=== PATIENT | male | born 1960 | race Caucasian/White ===

== ENCOUNTER → 2020-11-10 12:30 | Outpatient (CLI) | payer OTHER, SELFPAY ==
--- NOTE | ~2020-11-10 | CT_ITS ---
EXAMINATION: CT lung screening DATE: 11/10/2020 12:56 INDICATION: Personal history of tobacco dependence, current smoker with 30 pack year history. TECHNIQUE: Computed tomography (CT) of the chest was performed without intravenous contrast. The dose -length product (DLP) was 112.66 mGy-cm. 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 COMPARISON: 07/05/2019 FINDINGS: There is mild emphysema. Scarring is noted in the lung apices. No suspicious pulmonary nodu les are identified. There is no pleural effusion or pneumothorax. Calcified pulmonary nodules and tenzin cified right hilar lymph nodes are consistent with old granulomatous disease. No pathologically enlar ged thoracic lymph nodes are identified. The heart size is normal. Changes of anterior fusion are not ed in the lower cervical spine. There is mild thoracic spondylosis. IMPRESSION: 1. Lung-RADS category 1: Negative. Continue annual screening with noncontrast low-dose chest CT in 12 months. Reviewed, dictated and finalized at location A. IMPRESSION: 1. Lung-RADS category 1: Negative. Continue annual screening with noncontrast l ow-dose chest CT in 12 months.
== END ==
PROVIDERS: PCP Internal Medicine; Visit Provider Internal Medicine
DX: Z12.2 Encounter for screening for malignant neoplasm of respiratory organs (principal); Z87.891 Personal history of nicotine dependence
CPT/HCPCS: 71271

== ENCOUNTER 2025-03-13 03:01 | Day surgery (SDC) | payer OTHER, SELFPAY ==
--- OUTSIDE RECORDS SUMMARY | 2019-10-25 06:03 | XMS_ITS | Continuity of Care Document ---
Author Organization [facility] Address [address] [place] [address] Phone Care Team Providers Care Drafter Topographical Name Role Phone Crescencio Burden MD Unavailable Unavailable Advance Directives Directive Yes / No Effective Date File Name No Information Encounters Encounter Description Practice Location Reason(s) For Visit Diagnoses Date Provider Providers Copied on Encounter [facility] , [address], [place], [address], [place] tel:[phone] [facility] No Information 3 0 Bertram Prather. [address] [facility] [address], [place], [place], [id number] . tel:[phone] Family History Family Member Type Diagnosis Age At Onset No Information Payers Payer name Insurance type Covered republican ID Authoriza tion(s) No Information Social History Type Description Quantity Date Captured Comments Sex Male Smoking Status No Information Chief Complaint And Reason For Visit No Information Reason For Referral Reason For Referral No Information History Of Present Illness Encounter Date Complaint History Of Prese nt Illness No Information Functional Status Date Functional Assessmen t No Information Instructions Date Instruction Additional Infor mation No Information Assessments Type Assessment Date No Information Patient Care Teams Name Effective Dates (start - stop) Status Members No Information
[2025-03-12 09:08] VITALS: BMI 22.9
--- NOTE | 2025-03-12 09:15 | PC.NURSE ---
Report to the Outpatient Waiting Room, entrance under the green pavilion located off [facility], at time _0600_ on date _[phone]_. Planned Procedure Time: _0730_.? Time changes happen often and if your time is changed the preop area will call you the afternoon before. - You and your visitor will be asked to self-screen and do not enter if you have any COVID symptoms. Please call surgeon if you need to reschedule. - A mask is optional within the hospital at this time. Patients may have clear liquids (water, carbonated beverages, clear teas, apple juice) until 3 hours prior to surgery with a maximum of 20 ounces. - No food from midnight until time of surgery and no smoking, or chewing tobacco (or any form of nicotine). No chewing gum, candy or mints. Take only the following medications with a SIP of water on the morning of surgery: ___None____ DO NOT STOP ANY OF YOUR OTHER PRESCRIPTION MEDICATIONS PRIOR TO SURGERY EXCEPT THE FOLLOWING Hold all vitamins and supplements for 3 days per anesthesiologist. Medications to discontinue per physician Date to take last dose Please no make-up, nail french, hairspray, perfume, deodorant, or body powder the day of surgery.? No jewelry (including any body piercings) or valuables the day of surgery, leave them at home.? Please take a shower or bath the night before, or the morning of, surgery with an antibacterial soap.? Wear comfortable, loose fitting clothing.? - Jewelry must be removed prior to entering the operating room.? Rings and piercings that are not removed may be cut off. - The hospital will not accept responsibility for valuables.? - Please leave all valuables, including medications, at home the day of surgery. If you are going home after surgery, a licensed crude oil driver must drive you home.? - NO public transportation without another adult if you receive anesthesia. - We recommend that an adult stay with you for 24 hours following discharge. - We also recommend that you do not drive, make important decision, drink alcoholic beverages, or take any drugs that were not prescribed by your health care provider for at least 24 hours after your discharge time. Follow any additional instructions given to you from your surgeon. Telephone instructions given to __Sage__and asked if any additional questions and then verbalized understanding. Patient advised to call surgeon office or pre surgery nurse liaison [phone] if any additional questions.
--- OUTSIDE RECORDS SUMMARY | 2025-03-13 03:05 | XMS_ITS ---
Author Organization [facility] Address [address] [place] [address] Care Team Providers Care Air Quality Consultant Name Role Phone Beka Cruz MD Primary Care Provider [phone] Active Problems Problem Noted Date Diagnosed Date Acute on chronic back pain 10/22/2024 Assessment & Plan (10/23/2024 6:26 AM CDT): --Home pain regimen: Baclofen 10mg TID, Naproxen, APAP --Pt weaned off IV pain medication --Pain managed on scheduled APAP 1g q6, Gabapentin 300mg q8, Robaxin 750mg TID, lidocaine patches, flexeril 10 mg q8, Oxycodone 10mg q4 PRN Leukocytosis 10/22/2024 Assessment & Plan (10/23/2024 8:03 AM CDT): Afebrile. No infection complaints. Likely reactive to surgery. --Monitor CBC --10/23 wbc down trending 14.24 (14.6). Remains afebrile. --Pt to follow up with PCP outpatient Anemia of chronic disease 10/22/2024 Assessment & Plan (10/23/2024 8:31 AM CDT): EBL 10cc. Hgb stable 11.3 (11.4). -CBC monitored -Pt to follow up with PCP outpatient S/P spinal fusion 10/19/2024 S/P fusion of thoracic spine 10/19/2024 Cervical spondylosis with myelopathy 10/19/2024 Cervical myelopathy 09/17/2024 Assessment & Plan (10/23/2024 8:01 AM CDT): --S/p C5-T2 posterior spinal fusion with instrumentation, C7-T1 decompression on 10/22/2024, closed with nylons, drains x 1 --Post-operative imaging obtained 10/22 --Pt reports improvement in pre operative symptoms --Therapy recommends dispo to home --Patient to follow-up with Dr. Kc outpatient Spinal stenosis in cervical region 09/17/2024 Syphilis 08/09/2024 Overview (11/16/2024): Diagnosed on initial screening labs, no recollection of primary syphilis. Initially considered possibility of COLLAR PACKER involvement but feel this was due to spinal disease; it improved after surgery. Will need monitoring of titres. - Negative 05/07/24, 1:128 08/06/24, 1:32 09/14/2024 (appropriate 4 fold decrease) Assessment & Plan (08/09/2024 4:10 PM MANUFACTURING ENGINEER): ID for decision on penicllin treatment, need for CSF evaluation Educated on need for screening in sexual partner Healthcare maintenance 08/06/2024 Overview (11/16/2024): # Healthcare Maintenance - A1c (bp>135/80): 08/06/2024: Hgb A1C 5.4 No results found for requested labs within last 730 days. - Lipids (m>35): 08/06/2024: LDL, calculated 106 - AAA (m 65-75 c smoking hx): will need - CVD Statin: TBD - smoking status: 1 ppd since age 19 Cancer - Colonoscopy (45-75): needs repeat 2025 - PSA: No results found for requested labs within last 730 days. - Lung:(>50yo + >20pyhx): needs Infectious Disease - HIV (15-65): 08/06/2024: HIV 1/2 ab + p24 ag Nonreactive, No results found for requested labs within last 730 days. - HBV (high risk): 08/06/2024: HepBsAg Nonreactive - HCV (1x): 09/14/2024: Hep C Ab Nonreactive - GC/Ch (increased risk): 09/14/2024: N. gonorrhoeae Not Detected, 09/14/2024: C. trachomatis Not Detected - Syphilis (inc risk): 09/14/2024: RPR Reactive; RPR qn 1:32 Immunizations Vaccine hesitant - Influenza (q1y, Mar/Apr): - Td/Tdap (q10y): needs - Shingles (>50): received >65, immunocomp, CKD, asplenia - Prevnar 20 (OR heart/lung/liver dz, EtOH): received 2012 - HBV (DM, HIV, MSM, liver dz, CKD, healthcare workers): TBD - Covid : declines Most Recent Immunizations Administered Date(s) Administered Flucelvax Influenza Quad 04/21/2019 Hep B Vaccine 11/27/2007 Influenza, Quadrivalent, Cell Culture-based MDCK, Preservative Free, Antibiotic Free, Intramuscular 04/21/2019 Influenza, Quadrivalent, Split, Preservative Free, Intramuscular 03/10/2020 Influenza, Split 04/13/2013 Influenza, Unspecified 02/26/2018 Tdap 12/08/2007 ZOSTER Recombinant 12/08/2020 , Chronic chest wall pain 08/03/2024 Small bowel obstruction 08/03/2024 Pectoralis muscle strain 08/03/2024 Bilateral leg edema 06/23/2024 Assessment & Plan (06/24/2024 8:47 PM MANUFACTURING ENGINEER): Patient reports recent significant bilateral LE edema with rash anterior lopez since about 1 month ago. The LE edema have improved without any diuresis this admission. Last TTE in 2019 shows only mild MR and mild TV regurg. Also per chart has hx of mitral valve prolapse since a child however TTE from 2019 does not mention any MVP. Work-up -NT proBNP normal -duplex LE bilateral negative PLAN -check repeat TTE---will try to call the cardiac diagnostic lab on 06/25 to see if can get it before discharge but if not, will order it for outpatient and have PCP follow up with it Right leg pain 06/23/2024 Assessment & Plan (06/24/2024 8:44 PM MANUFACTURING ENGINEER): Bilateral LE rash and LE edema started about 1 month ago per patient. He states R > L edema with bruised feeling initially then became red and chapped appearing. -patient does have severe right and moderate left neural foraminal narrowing seen on the MRI spine -also incidental small gaitan's cyst over the R popliteal area -also has possible cellulitis over the anterior right and left lopez -family does note he had WBC elevation recently and had fevers at home -while inpatient, has been afebrile since admit Work-up -ESR, CRP elevated -CT R LE with IV contrast 06/23: IMPRESSION: 1. No CT evidence of osteomyelitis or focal drainable fluid collection. 2. Small Gaitan's cyst containing loose intra-articular bodies. 3. Mild to moderate medial compartment predominant tricompartmental right knee osteoarthritis PLAN -has some improvement by 06/24 with less pain on palpation -switch from IV cefazolin to PO keflex on 06/24---will treat for total of 7 days of antibiotic -follow up blood culture (prelim negative) -f/u MRSA nares -ortho trauma consulted for the R gaitan's cyst: don't feel like gaitan's cyst is contributing to pain and more likely the cellulitis Cellulitis of right leg 06/23/2024 Assessment & Plan (06/23/2024 7:43 PM MANUFACTURING ENGINEER): See plan under Right leg pain Constipation 06/23/2024 Assessment & Plan (06/23/2024 7:53 PM MANUFACTURING ENGINEER): Patient's family states he was recently told he was very constipated. Patient states he alternates between once a day bowel movement to once a week bowel movement. He can't remember his last BM. PLAN -miralax BID -senna BID History of nephrectomy, left 06/23/2024 Assessment & Plan (06/23/2024 7:57 PM MANUFACTURING ENGINEER): Per chart review, has hx of nephrectomy in age 20 due to kidney atrophy. -Cr within normal Urinary retention 06/23/2024 Assessment & Plan (06/24/2024 8:45 PM MANUFACTURING ENGINEER): Has hx of BPH and sometimes self cath but has urinary retention on admit that is more than his usual. Hx of elevated psa in the past and urology follow up in 2020, alos on testosterone weekly injection at home? Had last injection 1 week ago had urine retention at ED, placed Bansal , thought to be due to underlying BPH (ortho doesn't think its related to spine lesions). Per patient, he occasionally does intermittent self cath but not regularly. Work-up -UA with micro on admit negative for UTI PLAN -remove bansal and tried to do voiding trial however continued to require straight cath---will continue straight cath at discharge (patient reports he has enough supplies) -continue tamsulosin -ambulatory referral placed for urology at [facility] Fever 06/23/2024 Assessment & Plan (06/24/2024 8:41 PM MANUFACTURING ENGINEER): Family reports he's been having fever at home recently but has been afebrile here. Work-up -viral resp panel negative -CXR 06/23 negative for acute findings -UA on admission negative for UTI PLAN -follow up final blood culture x2, prelim negative -treat cellulitis (see under R leg pain) Acute on chronic low back pain 06/21/2024 Overview (09/14/2024): Many years of complex spine problems with pain and lower extremity weakness, left arm numbess/weakness. Bilateral alternating hip/radiating leg pain ongoing with leg numbness, burning, clumsiness History of C5-C6 anterior cervical discectomy, C6- C7 ACDF. MRI total spine 06/21/2024 shows lumbar severe spinal canal stenosis and severe right and moderate left neural foraminal narrowing + C7-T1 severe spinal canal stenosis. Unchanged combined posterior and interbody fusion L4-L5. Moderate to severe L3-L4 degenerative disc disease. Mild to moderate levoscoliosis. Multilevel spondylolisthesis. Established with [facility] ortho 08/03/2024, who feel his most pressing surgical need is C5-T2 vs C2-T2 PSF with C7-T1 decompression. Patient follows with Dr. Arnold Alvarado ([facility]), who plans to perform a posterior cervical decompression and spinal fusion for treatment. The patient was seen on 09/14/24 for pre-operative risk stratification. RCRI calculated at 0 (no hx/o ischemic heart disease, CVA, T2DM). ASA previously on medication list for primary prevention, discontinued as not indicated. The patient's surgeon had previously considered Stress TTE, but given the patient's low RCRI and lack of cardiac symptoms, we deemed this not to be necessary. I completed the patient's form clearing him for this procedure on 08/2024 visit. Assessment & Plan (08/09/2024 4:08 PM MANUFACTURING ENGINEER): Baclofen 10 tid Smoking cessation per ortho Assessment & Plan (06/24/2024 8:50 PM MANUFACTURING ENGINEER): -Pt with hx of chronic back pain, follows with neurosurgery as outpatient , sp C5-7 revision ACDF, L4-5 posterior spinal fusion with instrumentation performed at an outside hospital -now reporting with worsening lower back pain and bl le weakness for 1 week ; -on admission with bl LE weakness 08/29 Work-up -MRI total spine 06/21 with lumbar severe spinal canal stenosis and severe right and moderate left neural foraminal narrowing + C7-T1 severe spinal canal stenosis: 1. Changes posterior instrumented fusion and discectomy with intervertebral body spacer at L4-L5 with advanced degenerative disease at the L3-L4 level resulting in severe spinal canal stenosis as well as severe right and moderate left neural foraminal narrowing. Additional degenerative findings in the lumbar spine as above. 2. Disc bulge with superimposed bilateral paracentral/subarticular disc extrusions with left greater than right lateral recess effacement involving the L1-L2 level, with contact on the descending L2 nerve roots. Correlate with radiculopathy. 3. Anterior instrumented fusion C5-C7 with anterolisthesis of C7 on T1 and resultant degenerative disc disease as well as facet and uncovertebral hypertrophy contributing to up to severe spinal canal stenosis at the C7-T1 with associated myelomalacia/edema. 4. No significant degenerative findings in the thoracic spine. -duplex ultrasound: 1. There is no evidence of acute deep vein thrombosis in the lower extremities bilaterally. Noninvasive venous studies cannot rule out isolated calf vein obstruction. 2. Non-vascular, mixed structure noted in the right popliteal fossa may be consistent with a Gaitan's cyst. 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---they still said no inpatient surgery -also needs to quit smoking in order to get the surgery (per ortho spine, they worry the tabacco use will affect his wound healing) -PT, OT said home with family, with outpatient PT -pain control: scheduled tylenol 650 mg q6h PRN oxycodone 10 mg q4h Try to space out IV dilaudid on 06/24 in preparation for discharge---IV dilaudid 0.2 mg q6h Lidocaine patch Scheduled naproxen 500 mg BID---once outpatient off the DVT ppx dose lovenox, will likely able to increase this as well PRN baclofen 5 mg TID PRN Voltaren gel (for the knees and low back) -scheduled bowel regimen: senna BID + miralax BID---due to hx of intermittent constipation, need to monitor to ensure no ileus/SBO (no abdominal pain and still passing gas, no bowel movement yet but he states at home he alternates between 1 stool a day to 1 stool a week) -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 -requested social work team to help him get disability paperwork -order DME for wheelchair and wheeled walker -patient states he will try to see if [facility] can get him a sooner appointment with their ortho team -anticipate discharge on 06/25 after weaned off dilaudid and social work assistance done -patient states he has no PCP and was previously seeing an urgent care physician in [place] who was doing his physicals (he was between [place] and [place] recently)---PCP set up in [place] for 11/20/2024 (in between now and then, he may need to go to the [place] [facility] for follow-up if need to renew his pain meds---will try to discuss with social work/case management team on 06/25 about if there's any transition of care clinic or sooner appointments) BPH (benign prostatic hyperplasia) 06/21/2024 Assessment & Plan (06/23/2024 8:00 PM MANUFACTURING ENGINEER): See under urinary retention History of colon polyps 08/06/2022 Overview (08/06/2022): Added automatically from request for surgery [id number] Osteopenia of multiple sites 11/08/2019 Tobacco use 11/08/2019 Overview (11/16/2024): 39 pack years. Quit recently in anticipation of surgery, has remained off tobacco since. Vaping with zero nicotine cartridges. - repeat LDCT for birads 3 lesion from 2018 - has not met with pulm or had PFT's Assessment & Plan (06/24/2024 8:47 PM MANUFACTURING ENGINEER): See under emphysema Needs PCP to do lung CT for cancer screening History of colon cancer 07/05/2019 Overview (07/05/2019): Added automatically from request for surgery [id number] Assessment & Plan (11/16/2024 6:30 PM CDT): Diagnosed with colon cancer on 52th birthday, 2012. Treated with surgical resection. Needs repeat colonoscopy in 2025. CEA WNL 10/2024. Assessment & Plan (06/23/2024 7:55 PM MANUFACTURING ENGINEER): laparoscopic right hemicolectomy 2002 for colon cancer Other emphysema 01/29/2019 Assessment & Plan (06/24/2024 8:42 PM MANUFACTURING ENGINEER): Patient smokes tabacco----last smoke was around 06/19 (quit in order to be able to get surgery for his back). -family states he was diagnosed with 'bronchitis' recently and is supposed to be on 3 months worth of antibiotic but he only finished 2 weeks of it due to being admitted here, and family feels like he is still coughing but patient denies any SOB Work-up -CXR 06/23: negative for acute findings The patient is status post anterior cervical spine fusion. The lungs are well-expanded and clear. The cardiomediastinal silhouette is normal. 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 Bilateral alternating hip/radiating leg pain ongoing with leg numbness, burning, clumsiness that has been increasing in severity over the last several months, leading to being on FMLA. History of C5-C6 anterior cervical discectomy, C6-C7 ACDF MRI total spine 06/21/2024 shows lumbar severe spinal canal stenosis and severe right and moderate left neural foraminal narrowing + C7-T1 severe spinal canal stenosis. Unchanged combined posterior and interbody fusion L4-L5. Moderate to severe L3- L4 degenerative disc disease. Mild to moderate levoscoliosis. Multilevel spondylolisthesis. Established with [facility] ortho 08/03/2024, who feel his most pressing surgical need is C5-T2 vs C2-T2 PSF with C7-T1 decompression. This surgery 10/19 with excellent improvement in balance and leg pain. Chronic pain post op has been managed well, not requiring frequent opioids. Post-procedural erectile dysfunction 01/11/2017 Tobacco dependence syndrome 11/10/2013 Overview (09/30/2016): TOBACCO USE DISORDER Herpes simplex virus (HSV) infection 08/09/2012 Current Treatment and Therapy Plans No current plan information found. Past Treatment and Therapy Plans No past plan information found. Lifetime Dose Tracking * Chemical Lifetime Dose Automatic Entry Manual Entr y Fluoro Time 0.457 minutes 0.457 minutes 0 minutes Air kerma at the reference point (Ka,r) 8.98 mGy 8 .98 mGy 0 mGy DLP 3,645 mGycm 3,645 mGycm 0 mGycm CTDIvol 1.98 mGy 1.98 mGy 0 mGy Resolved Problems Problem Noted Date Diagnosed Date Resolved Date Bilateral lower leg cellulitis 06/23/2024 06/23/2024 Assessment & Plan (06/23/2024 7:42 PM MANUFACTURING ENGINEER): Suspect possible LE cellulitis, more prominent over the R than L. See under R leg pain. Encounter for wellness examination in adult 01/11/2017 01/10/2018 Ulcer of rectum 09/22/2016 01/30/2019 Generalized osteoarthritis 11/10/2013 0 01/11/2017 Overview (09/30/2016): GENERAL OSTEOARTHROSIS Multiple-type hyperlipidemia 11/10/2013 01/10/2018 Overview (09/30/2016): MIXED HYPERLIPIDEMIA Malignant neoplasm of colon 09/04/2012 01/31/2020 Overview (09/30/2016): Colon cancer Gastroesophageal reflux disease 08/09/2012 01/10/2018 Polyp of sigmoid colon 08/09/201201/10 Overview (10/07/2017): Description: multiple precancerous polyps History of mitral valve prolapse 08/09/2012 06/24/2024 Assessment & Plan (06/24/2024 8:45 PM MANUFACTURING ENGINEER): History of MVP since child noted in previous local charts. PLAN -TTE
--- OUTSIDE RECORDS SUMMARY | 2025-03-13 03:05 | XMS_ITS | Encounter Summary ---
Author Organization [facility] Address [address] [place] [id number] Care Team Providers Care Resource Protection Specialist Name Role Phone None, Provider Primary Care Provider Landen Nance MD Unavailable [phone] Encounter Details Date Type Department Care Team (Late st Contact Info) Description 02/20/2015 Abstract [facility] CONVERSION [address] [place] [address] , Generic Conversion, Social History Tobacco Use Types Packs/Day Years Used Date Smoking Tobacco: Never Assessed Sex and Gender Information Value Date Recorded Sex Assigned at Not on file Legal Sex Male 6:21 PM CDT Gender Identity Not on file Sexual Orientation Not on file documented as of this encounter Plan of Treatment Not on file documented as of this encounter Visit Diagnoses Not on filedocumented in this encounter Care Teams Resource Protection Specialist Relationship Specialty Start Date End Date None, Provider, PCP - General 06/26/20 Landen Robbins MD [address] [facility] [address] [place] [address] ORTHOPAEDIC SURGERY 06/26/20 documented as of this encounter
--- OUTSIDE RECORDS SUMMARY | 2025-03-13 03:05 | XMS_ITS | Clinical Summary ---
Author Organization [facility] Address [address] [place] [address] Care Team Providers Care Rnfa Name Role Phone Beka Cruz MD Primary Care Provider [phone] Allergies Active Allergy Reactions Criticality Noted Date Comments Benzonatate Hives Medium 06/26/2020 Medications albuterol HFA (PROVENTIL HFA,VENTOLIN HFA,PROAIR HFA) 90 mcg/actuation inhaler Inhale 2 puffs every 4 (four) hours as needed for wheezing or shortness of breath 3 each 4 5 026 Active Additional Information Patient taking differently:2 puff inhalation Every 4 hours PRN, wheezing, shortness of breath,Indications: Bronchospasm Prevention, from URI, Informant: Self, Reported on 01/11/2025 tamsulosin (FLOMAX) 0.4 mg extended release capsule Take 1 capsule (0.4 mg total) by mouth daily with dinner 30 capsule 11 5 026 Active Additional Information Patient taking differently:0.4 mg oral Daily with dinner,Indications: benign prostatic hyperplasia with lower urinary tract sx, Informant: Self, Reported on 01/11/2025 varenicline tartrate (CHANTIX) 1 mg tabletIndicati ons:Smoking Cessation Take 1 tablet (1 mg total) by mouth 2 (two) times a day Take with full glass of water. 120 tablet 3 5 Active DIETARY SUPPLEMENT ORAL Take 1 tablet by mouth every morning Beets Active calcium carbonate-kamran min D3 1,250mg (500mg elemental) - 5 mcg (200 units) per tablet Take 1 tablet by mouth 3 (three) times a day for 10 days 30 tablet 5 Active cyclobenzaprin e (FLEXERIL) 10 mg tabletIndicati ons:Muscle Spasm Take 1 tablet (10 mg total) by mouth every 8 (eight) hours as needed for muscle spasms 90 tablet 5 Active gabapentin (NEURONTIN) 300 mg capsuleIndicat ions:Pain Take 1 capsule (300 mg total) by mouth every 8 (eight) hours 90 capsule 5 Active methocarbamoL (ROBAXIN) 750 mg tablet Take 1 tablet (750 mg total) by mouth 3 (three) times a day 90 tablet 5 Active senna-docusate (PERICOLACE) 8.6-50 mgIndications: constipation Take 2 tablets by mouth 2 (two) times a day 120 tablet 5 Active Xyosted 75 mg/0.5 mL auto-injector INJECT 75mg SUBCUTANEOUSLY EVERY WEEK 5 Active oxyCODONE (ROXICODONE) 10 mg tabletIndicati ons:Pain Take 1 tablet (10 mg total) by mouth 2 (two) times a day 14 tablet 5 Active Active Problems Problem Noted Date Diagnosed Date [...] of primary syphilis. Initially considered possibility of BUSINESS CONTINUITY COORDINATOR involvement but feel this was due to spinal disease; it improved after surgery. Will need monitoring of titres. - Negative 05/07/24, 1:128 08/06/24, 1:32 09/14/2024 (appropriate 4 fold decrease) Assessment & Plan (08/09/2024 4:10 PM ENTERTAINMENT DIRECTOR): ID for decision on penicllin treatment, need [...] 06/23/2024 Assessment & Plan (06/24/2024 8:47 PM ENTERTAINMENT DIRECTOR): Patient reports recent significant bilateral LE edema [...] 06/23/2024 Assessment & Plan (06/24/2024 8:44 PM ENTERTAINMENT DIRECTOR): Bilateral LE rash and LE edema started [...] 06/23/2024 Assessment & Plan (06/23/2024 7:43 PM ENTERTAINMENT DIRECTOR): See plan under Right leg pain Constipation 06/23/2024 Assessment & Plan (06/23/2024 7:53 PM ENTERTAINMENT DIRECTOR): Patient's family states he was recently told he was very constipated. Patient states he alternates between once a day bowel movement to once a week bowel movement. He can't remember his last BM. PLAN -miralax BID -senna BID History of nephrectomy, left 06/23/2024 Assessment & Plan (06/23/2024 7:57 PM ENTERTAINMENT DIRECTOR): Per chart review, has hx of nephrectomy in age 20 due to kidney atrophy. -Cr within normal Urinary retention 06/23/2024 Assessment & Plan (06/24/2024 8:45 PM ENTERTAINMENT DIRECTOR): Has hx of BPH and sometimes self [...] tamsulosin -ambulatory referral placed for urology at [facility] Fever 06/23/2024 Assessment & Plan (06/24/2024 8:41 PM ENTERTAINMENT DIRECTOR): Family reports he's been having fever at [...] to moderate levoscoliosis. Multilevel spondylolisthesis. Established with [facility] ortho 08/03/2024, who feel his most pressing surgical need is C5-T2 vs C2-T2 PSF with C7-T1 decompression. Patient follows with Dr. Arnold Alvarado ([facility]), who plans to perform a posterior cervical [...] visit. 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 not [...] previously seeing an urgent care physician in [place] who was doing his physicals (he was between [place] and [place] recently)---PCP set up in [place] for 11/20/2024 (in between now and then, he may need to go to the [place] [facility] for follow-up if need to renew his pain meds---will try to discuss with social work/case management team on 06/25 about if there's any transition of care clinic or sooner appointments) BPH (benign prostatic hyperplasia) 06/21/2024 Assessment & Plan (06/23/2024 8:00 PM ENTERTAINMENT DIRECTOR): See under urinary retention History of colon polyps 08/06/2022 Overview (08/06/2022): Added automatically from request for surgery [id number] Osteopenia of multiple sites 11/08/2019 Tobacco use 11/08/2019 Overview (11/16/2024): 39 pack years. Quit recently in anticipation of surgery, has remained off tobacco since. Vaping with zero nicotine cartridges. - repeat LDCT for birads 3 lesion from 2018 - has not met with pulm or had PFT's Assessment & Plan (06/24/2024 8:47 PM ENTERTAINMENT DIRECTOR): See under emphysema Needs PCP to do lung CT for cancer screening History of colon cancer 07/05/2019 Overview (07/05/2019): Added automatically from request for surgery [id number] Assessment & Plan (11/16/2024 6:30 PM CDT): Diagnosed with colon cancer on 52th birthday, 2012. Treated with surgical resection. Needs repeat colonoscopy in 2025. CEA WNL 10/2024. Assessment & Plan (06/23/2024 7:55 PM ENTERTAINMENT DIRECTOR): laparoscopic right hemicolectomy 2003 for colon cancer Other emphysema 01/29/2019 Assessment & Plan (06/24/2024 8:42 PM ENTERTAINMENT DIRECTOR): Patient smokes tabacco----last smoke was around 06/19 [...] ox -ambulatory referral to pulm clinic at [facility] -prescribe albuterol PRN at discharge Anorgasmia of [...] to moderate levoscoliosis. Multilevel spondylolisthesis. Established with [facility] ortho 08/03/2024, who feel his most pressing surgical need is C5-T2 vs C2-T2 PSF with C7-T1 decompression. This surgery 10/19 with excellent improvement in balance and leg pain. Chronic pain post op has been managed well, not requiring frequent opioids. Post-procedural erectile dysfunction 01/11/2017 Tobacco dependence syndrome 11/10/2013 Overview (09/30/2016): TOBACCO USE DISORDER Herpes simplex virus (HSV) infection 08/09/2012 Resolved Problems Problem Noted Date Diagnosed Date Resolved Date Bilateral lower leg cellulitis 06/23/2024 06/23/2024 Assessment & Plan (06/23/2024 7:42 PM ENTERTAINMENT DIRECTOR): Suspect possible LE cellulitis, more prominent over [...] 06/24/2024 Assessment & Plan (06/24/2024 8:45 PM ENTERTAINMENT DIRECTOR): History of MVP since child noted in previous local charts. PLAN -TTE Encounters Date Type Department Care Team Description 03/10/2025 1:53 AM CDT - 03/10/2025 3:46 AM CDT Emergency [facility] [address] [place] [address] Foreign body in penis, initial encounter (Primary Dx) Discharge Disposition: Discharge to home or self care 01/17/2025 Telephone [facility] [address] [place] [address] 6th [place] [address] [place] [address] Roberth Breaux MD FMLA 01/11/2025 12:45 PM CDT Office Visit [facility] [address] [facility] 6th [place] [address] [place] [address] Arnold Alvarado MD Cervical spondylosis with myelopathy (Primary Dx) 01/11/2025 12:30 PM CDT - 01/11/2025 11:59 PM CDT Hospital Encounter [facility] [address] [place] [address] Cervical spondylosis with myelopathy Discharge Disposition: Discharge to home or self care 12/27/2024 4:35 PM CDT - 12/27/2024 11:59 PM [place] [address] Encounter for screening for lung cancer; Cigarette nicotine dependence, uncomplicated Discharge Disposition: Discharge to home or self care 12/24/2024 Telephone [facility] [address] [place], [place] [id number] Janice Purcell RN from Last 3 Months Immunizations Immunization Administration Dates Next Due Flucelvax Influenza Quad 04/21/2019 Hep B Vaccine 11/27/2007,11/03/2007 Influenza, Quadrivalent, Alejandra l Culture-based MDCK, Preservative Free, Antibiotic Free, Intramuscular 04/21/2019 Influenza, Quadrivalent, Spl it, Preservative Free, Intramuscular 03/10/2020,02/25/2018 Influenza, Split 04/13/2013 Influenza, Unspecified 02/04/2021(Deferr ed: Patient Refused),02/26/2018 Tdap 12/08/2007 ZOSTER Recombinant 12/08/2020,09/03/2020 Surgical History Surgery Date Site/Laterality Comments HERNIA REPAIR 06/27/2001 - 06/26/2002 Hernia repair CARPAL TUNNEL RELEASE 06/27/1999 - 06/26/2000 Carpal tunnel release TONSILLECTOMY 06/27/1983 - 06/26/1984 Tonsillectomy OTHER SURGICAL HISTORY rt shoulder surg/benign mass KNEE ARTHROSCOPY 06/27/2010 - 06/26/2011 Arthroscopy knee KNEE ARTHROSCOPY Arthroscopy knee VASECTOMY 2006 Vasectomy NEPHRECTOMY Nephrectomy OTHER SURGICAL HISTORY 06/27/2012 - 06/26/2013 hand assisted lap right hemicolectomy OTHER SURGICAL HISTORY Cancer, colon: Excision COLON SURGERY 2012 CERVICAL FUSION C4 c5 c6 OTHER SURGICAL HISTORY decompression of nevere C8/T1 (release of nerve to left hand) TENDON TRANSFER left forearm and hand COLONOSCOPY 10/18/2017 COLONOSCOPY 08/26/2019 - 09/25/2019 APPENDECTOMY 2013 SPINE SURGERY 2014 ABDOMINAL SURGERY 2019 Medical History Medical History Date Comments Hx Other Medical Mitral Valve Pr olapse Hx Other Medical tobacco abuse Osteoarthritis Osteoarthritis Hx Other Medical herpes labialis Benign prostatic hyperplasia 2014 Oren ign prostatic hypertrophy Hx Other Medical 1980 left nephrectom y Malignant neoplasm of colon 2012 Canc er, colon Hx Other Medical neck surgery; C omments: Feb 2015 Colon cancer (HCC) Colon polyp Chronic kidney disease 1979 Hematuria Urinary incontinence Kidney stone Erectile dysfunction Thoracic spinal cord injury (HCC) Back pain Family History Medical History Relation Name Comments Hypertension Father Wesley Kilpatrick Hypertension ; Kidney disease Father Wesley Kilpatrick Other Father Wesley Kilpatrick Alive and we ll; Alcohol abuse Mother Kajal Kilpatrick Arthritis Mother Kajal Kilpatrick Other Mother Kajal Kilpatrick Alive and we ll; Cancer Other 1 Family history of Cancer; Diabetes Other 2 Family history of Diabetes mellitus; Anesthesia problems Neg Hx Relation Name Status Comments Father Wesley Kilpatrick Alive Mother Kajal Kilpatrick Alive Other 1 Other 2 Social History Tobacco Use Types Packs/Day Years Used Date Smoking Tobacco: Former Cigarettes 1 41.1 0 06/27/1983 - 07/20/2024 Passive Smoke Exposure: Yes Smokeless Tobacco: Never Tobacco Cessation:Counseling Given: Not Answered Comments:Quit for several years after cancer diagnosis. Quitting now for good Alcohol Use Standard Drinks/Week Comments No 0 (1 standard drink = 0.6 oz pur e alcohol) AUDIT-C Answer Date Recorded Q1: How often do you have a drink containing alc ohol? Monthly or less 01/11/2025 Q2: How many drinks containi ng alcohol do you have on a typical day when you are drinking? 1 or 2 01/11/2025 Q3: How often do you have si x or more drinks on one occasion? Never 01/11/2025 PHQ-2 Answer Date Recorded PHQ-2 Total Score (If total score is 3 or more points, staff should administer the PHQ-9) 0 08/10/2021 Hunger Vital Sign Answer Date Recorded Within the past 12 months, y ou worried that your food would run out before you got the money to buy more. Never true 09/15/19 25 Within the past 12 months, t he food you bought just didn't last and you didn't have money to get more. Never true 09/14/2024 Personal Safety Answer Date Recorded Have you ever been in or are you currently in a harmful physical or emotional relationship or is someone making you feel afraid or unsafe? Denies 03/10/2025 Sex and Gender Information Value Date Recorded Sex Assigned at Not on file Legal Sex Male 11:55 PM ENTERTAINMENT DIRECTOR Gender Identity Not on file Sexual Orientation Not on file Obstetrics History Last Filed Vital Signs Vital Sign Reading Time Taken Comments Blood Pressure 131/81 03/10/2025 1:49 AM CDT Pulse 72 03/10/2025 1:49 AM CDT Temperature 36.9 C (98.4 F) 03/10/2025 1:49 AM CDT Respiratory Rate 16 03/10/2025 1:49 AM CDT Oxygen Saturation 98% 03/10/2025 1:49 AM CDT Inhaled Oxygen Concentration - - Weight 74.8 kg (165 lb) 03/10/2025 1:47 AM CDT Height 177.8 cm (5' 10) 03/10/2025 1:47 AM CDT Body Mass Index 23.68 03/10/2025 1:47 AM CDT Plan of Treatment Health Maintenance Due Date Last Done Comments Pneumococcal vaccine <65 (1 of 2 - PCV) 1981 DTaP/Tdap/Td Vaccine (2 - Td or Tdap) 12/07/2017 12/08/2007 Osteoporosis Screening-Bone Density Scan 07/05/2021 07/05/2019, 07/05/2019, 07/17/2018 Regular Well Visit/Exam 18-64 02/04/2022, 01/31/2020, 01/29/2019, Additional history exists Prostate Cancer Screening-PSA 04/22/2022, 01/26/2021, 01/14/2020, Additional history exists Depression Screening 08/10/2022 08/10/2021, 02/04/2021, 08/07/2020, Additional history exists Influenza Vaccine (#1) 2025 , 04/21/2019, 04/21/2019, Additional history exists Colon Cancer Screening-Colonoscopy 10/25/2025 10/25/2022, 08/27/2019, 10/18/2017, Additional history exists Lung Cancer Screening 12/28/2025 12/27/2024 , 11/10/2020, 02/08/2018 Zoster Vaccine Completed 12/08/2020, 09/03/2020 Colon Cancer Screening-CT Colonography Discontinued 10/25/2022, 08/27/2019, 10/18/2017, Additional history exists Colon Cancer Screening-DNA Stool Discontinued 10/25/2022, 08/27/2019, 10/18/2017, Additional history exists Colon Cancer Screening-FIT Discontinued 10/25, 08/27/2019, 10/18/2017, Additional history exists Colon Cancer Screening-Sigmoidoscopy Discontinued 10/25/2022, 08/27/2019, 10/18/2017, Additional history exists Hepatitis B Screening Completed 08/06/2024 , 11/27/2007, 11/03/2007 Hepatitis C Screening Completed 09/14/2024, 017 Medical Devices Implanted Type Area Residential Nurse Device Identifier Shelf Expiration Date Model / Serial / Lot Screws Spine Cervical [employer] Frozen 1-4mm Graft 60ml Bone Cancellous [id number] - [id number] - [id number] Implanted:Qty : 1 on 10/19/2024 by Roberth Breaux MD at [facility] [employer] [id number] 09/29/2027 [id number] / [id number] / [employer] Infuse 20ga 2x1in Vial Absorbable Syringe Needle Medium Graft 5.6 [id number] - [id number] Implanted:Qty : 1 on 10/19/2024 by Roberth Breaux MD at [facility] [employer] [id number] 07/28/2025 [id number] / / [id number] [employer] Screw Spinal Posterior Cervical Locking Solid Reline C [id number] - [id number] Implanted:Qty : 8 on 10/19/2024 by Roberth Breaux MD at [facility] [id number] / / [employer] Screw Spinal Posterior Cervical Solid Reline 3.5x16mm [id number] - [id number] Implanted:Qty : 4 on 10/19/2024 by Roberth Breaux MD at [facility] [id number] / / [employer] Screw Spinal Thoracic Solid Reline C 4.5x30mm [id number] - [id number] Implanted:Qty : 2 on 10/19/2024 by Roberth Breaux MD at [facility] [id number] / / [employer] Screw Spine Reline C Ma 3.5x30mm Non-Sterile Latex Free [id number] - [id number] Implanted:Qty : 2 on 10/19/2024 by Roberth Breaux MD at [facility] [id number] / / [employer] Quartex 4mm 75mm Curve Brian Spinal Nonsterile Latex Free 1149.7575 - [id number] Implanted:Qty : 2 on 10/19/2024 by Roberth Breaux MD at [facility] [id number] / / Procedures Procedure Name Priority Date/Time Associated Diagnosis Comments XR PELVIS 1 OR 2 VIEWS ED 03/10/2025 2:27 AM CDT XR SCOLIOSIS 4 OR 5 VW Schedule Routine, Read Routine (OP Routine) 01/11/2025 12:55 PM CDT Cervical spondylosis with myelopathy CT LUNG CANCER SCREENING Schedule Routine, Read Routine (OP Routine) 12/27/2024 4:55 PM CDT Encounter for screening for lung cancer Cigarette nicotine dependence, uncomplicated HEPATITIS C ANTIBODY Routine 09/14/2024 11:21 AM CDT Routine screening for STI (sexually transmitted infection) COLONOSCOPY 10/25/2022 7:47 AM CDT PSA DIAGNOSTIC Routine 04/22/2021 8:46 AM CDT Elevated PSA HM DEXA SCAN Routine 07/05/2019 from Last 3 Months or Most Recently Relevant to Health Maintenance Results * XR Pelvis 1 or 2 Views (03/10/2025 2:27 AM CDT) Anatomical Region Laterality Modality Body, Pelvis N/A Computed Radiogr aphy 03/10/2025 5:37 AM CDT Impressions 03/10/2025 5:37 AM CDT FINDINGS/IMPRESSION: No acute fracture or dislocation. Partially noted posterior lumbar spinal fusion. There is a linear hyperdense foreign body in the shaft of the penis. Patient's provider's is aware of the foreign body finding per patient's note. Electronically signed by: Tawanda Moe M.D. Narrative 03/10/2025 5:37 AM CDT EXAM: XR PELVIS 1 OR 2 VIEWS, 03/10/2025 2:15 AM HISTORY: needle in penis COMPARISON: Right hip radiographs from 06/21/2024. Procedure Note Tawanda Moe MD - 03/10/2025 EXAM: XR PELVIS 1 OR 2 VIEWS, 03/10/2025 2:15 AM HISTORY: needle in penis COMPARISON: Right hip radiographs from 06/21/2024. IMPRESSION: FINDINGS/IMPRESSION: No acute fracture or dislocation. Partially noted posterior lumbar spinal fusion. There is a linear hyperdense foreign body in the shaft of the penis. Patient's provider's is aware of the foreign body finding per patient's note. Electronically signed by: Tawanda Moe M.D. Lauren Perez HOOF AND SHOE INSPECTOR IMG XR PROCEDURES F inal Result * XR Scoliosis 4 or 5 Views (01/11/2025 12:55 PM CDT) Anatomical Region Laterality Modality Spine N/A Computed Radiogr aphy 01/11/2025 5:59 PM CDT Impressions 01/11/2025 10:50 PM CDT 1. Postoperative changes of cervical, and lumbar instrumented spinal fusion with intact instrumentation. 2. Rotatory levoscoliosis of the mid lumbar spine, with severe degenerative changes at L3-L4.. Dictated by: Elpidio Kincaid MD The radiology attending physician has personally reviewed this study, and had reviewed and/or edited this written report and agrees with it. Electronically signed by: Otoniel Sharp MD Narrative 01/11/2025 10:50 PM CDT EXAMINATION: XR SCOLIOSIS 4 OR 5 VW HISTORY: Spinal fusion, follow-up FINDINGS: 3 views of the cervical spine, with upright frontal and lateral views the entire spine utilizing the EOS system are submitted for interpretation, with comparison radiograph dated 11/09/2024. Postoperative changes of anterior discectomy and interbody fusion of C5-C7, and posterior instrumented f spinal fusion from C5 to T2 are again seen, with intact interpretation. Additionally, postoperative changes of anterior discectomy and posterior instrumented spinal fusion on L4-L5 also noted. There is stepwise anterolisthesis of C2 on C3, and C3 on C4. There is no prevertebral soft tissue swelling. There is neutral coronal and sagittal balance. Lumbar levoscoliosis centered at L3. Multilevel disc height loss, greatest and severe at L3-L4. No evidence of vertebral body compression deformity. Procedure Note Leti Sharp MD - 01/11/2025 EXAMINATION: XR SCOLIOSIS 4 OR 5 VW HISTORY: Spinal fusion, follow-up FINDINGS: 3 views of the cervical spine, with upright frontal and lateral views the entire spine utilizing the EOS system are submitted for interpretation, with comparison radiograph dated 11/09/2024. Postoperative changes of anterior discectomy and interbody fusion of C5-C7, and posterior instrumented f spinal fusion from C5 to T2 are again seen, with intact interpretation. Additionally, postoperative changes of anterior discectomy and posterior instrumented spinal fusion on L4-L5 also noted. There is stepwise anterolisthesis of C2 on C3, and C3 on C4. There is no prevertebral soft tissue swelling. There is neutral coronal and sagittal balance. Lumbar levoscoliosis centered at L3. Multilevel disc height loss, greatest and severe at L3-L4. No evidence of vertebral body compression deformity. IMPRESSION: 1. Postoperative changes of cervical, and lumbar instrumented spinal fusion with intact instrumentation. 2. Rotatory levoscoliosis of the mid lumbar spine, with severe degenerative changes at L3-L4.. Dictated by: Elpidio Kincaid MD The radiology attending physician has personally reviewed this study, and had reviewed and/or edited this written report and agrees with it. Electronically signed by: Otoniel Sharp MD Arnold Alvarado MD IMG XR PROCEDURES Final Result * CT Lung Cancer Screening (12/27/2024 4:55 PM CDT) Anatomical Region Laterality Modality Chest N/A Computed Tomogra phy 01/10/2025 6:33 AM CDT Narrative 01/10/2025 6:37 AM CDT EXAM DESCRIPTION: CT LUNG CANCER SCREENING REASON FOR STUDY: Screening CT of the chest in a former smoker with a 41 pack year smoking history. Additional history: History of colon cancer. TECHNIQUE: Low dose CT scan of the chest was performed without intravenous contrast using helical scanning technique. The exam extends from the lung apices through the lung bases. Automatic exposure control was used as a dose optimization technique. NOTE: This study was performed for the specific purposes of lung cancer screening and is not an alternative to diagnostic chest CT. RADIATION DOSE: CT dose index volume (CTDIvol) = 1.98 mGy COMPARISON: 09/08/2017 FINDINGS: SMOKING RELATED LUNG DISEASE: There are mild emphysematous changes of lungs with scattered mild subsegmental atelectasis and scarring. There is scattered mild reticulations with mild interlobular septal thickening noted in the periphery of the bilateral lungs, which is concerning for mild chronic nonspecific interstitial changes, possibly due to mild emphysematous combined fibrosis. There is biapical pleural thickening and scarring. There is no definite evidence of a pneumothorax. The central airways are grossly patent. There is no definite evidence of focal consolidation or pleural effusion. There are few scattered calcified granulomas noted. LUNG NODULES: There are scattered small pulmonary nodules noted. For example, there is a 0.3 cm pulmonary nodule in the anterior right middle lobe abutting the right minor fissure (axial image 208). There is a subtle subpleural 0.2 cm pulmonary nodule in the anterior right middle lobe (axial image 217). There is a subtle 0.3 cm pulmonary nodule in the medial right lower lobe (axial image 278). There is a 0.3 cm pulmonary nodule in the anterior left lower lobe abutting the left major fissure (axial image 180). CORONARY ARTERY CALCIFICATION: Not identified. OTHER: The heart size is stable. There is no definite evidence of pericardial effusion. There are minimal atherosclerotic changes of the thoracic aorta. There is no definite unenhanced CT evidence of mediastinal, hilar, or axillary lymphadenopathy. There are scattered subcentimeter mediastinal lymph nodes noted with largest measuring 0.6 cm in the subcarinal region (axial image 161). Calcified right hilar lymph nodes are noted. There is a small hiatal hernia. The bilateral adrenal glands are grossly stable and unremarkable. There is a mild dextroscoliotic curvature of the spine with mild degenerative changes. IMPRESSION: 1. Scattered small pulmonary nodules with the largest measuring up to 0.3 cm. 2. Mild emphysematous changes of lungs with scattered mild subsegmental atelectasis and scarring. 3. Scattered mild reticulations with mild interlobular septal thickening noted in the periphery of the bilateral lungs, which is concerning for mild chronic nonspecific interstitial changes, possibly due to mild emphysematous combined fibrosis. 4. Evidence of prior granulomatous disease. Lung-RADS category 2: Benign appearance or behavior. Recommendation: Low dose Screening CT of chest in 12 months. THIS IS AN ELECTRONICALLY VERIFIED FINAL REPORT 01/10/2025 6:37 AM - Electronically signed by Adrián Garcia D.O. PS: PS Report ID: [id number] Reading Location: [place] [address] Procedure Note Adrián Garcia, - 01/10/2025 EXAM DESCRIPTION: CT LUNG CANCER SCREENING REASON FOR STUDY: Screening CT of the chest in a former smoker with a41 pack year smoking history. Additional history: History of colon cancer. TECHNIQUE: Low dose CT scan of the chest was performed without intravenous contrast using helical scanning technique. The exam extends from the lung apices through the lung bases. Automatic exposure control was used as adose optimization technique. NOTE: This study was performed for the specific purposes of lung cancer screening and is not an alternative to diagnostic chest CT. RADIATION DOSE: CT dose index volume (CTDIvol) = 1.98 mGy COMPARISON: 09/08/2017 FINDINGS: SMOKING RELATED LUNG DISEASE: There are mild emphysematous changes oflungs with scattered mild subsegmental atelectasis and scarring. There isscattered mild reticulations with mild interlobular septal thickening noted in the periphery of the bilateral lungs, which is concerning for mild chronic nonspecific interstitial changes, possibly due to mild emphysematouscombined fibrosis. There is biapical pleural thickening and scarring. There is no definite evidence of a pneumothorax. The central airways are grosslypatent. There is no definite evidence of focal consolidation or pleural effusion. There are few scattered calcified granulomas noted. LUNG NODULES: There are scattered small pulmonary nodules noted. For example, there is a 0.3 cm pulmonary nodule in the anterior right middlelobe abutting the right minor fissure (axial image 208). There is a subtle subpleural 0.2 cm pulmonary nodule in the anterior right middle lobe(axial image 217). There is a subtle 0.3 cm pulmonary nodule in the medial right lower lobe (axial image 278). There is a 0.3 cm pulmonary nodule in the anterior left lower lobe abutting the left major fissure (axial [id number]). CORONARY ARTERY CALCIFICATION: Not identified. OTHER: The heart size is stable. There is no definite evidence of pericardial effusion. There are minimal atherosclerotic changes of the thoracic aorta. There is no definite unenhanced CT evidence of mediastinal, hilar, oraxillary lymphadenopathy. There are scattered subcentimeter mediastinal lymphnodes noted with largest measuring 0.6 cm in the subcarinal region (axial image 161). Calcified right hilar lymph nodes are noted. There is a small hiatal hernia. The bilateral adrenal glands are grossly stable and unremarkable. There is a mild dextroscoliotic curvature of the spine with milddegenerative changes. IMPRESSION: 1. Scattered small pulmonary nodules with the largest measuring up to0.3 cm. 2. Mild emphysematous changes of lungs with scattered mild subsegmental atelectasis and scarring. 3. Scattered mild reticulations with mild interlobular septal thickening noted in the periphery of the bilateral lungs, which is concerning formild chronic nonspecific interstitial changes, possibly due to mildemphysematous combined fibrosis. 4. Evidence of prior granulomatous disease. Lung-RADS category 2: Benign appearance or behavior. Recommendation: Low dose Screening CT of chest in 12 months. THIS IS AN ELECTRONICALLY VERIFIED FINAL REPORT 01/10/2025 6:37 AM - Electronically signed by Adrián Garcia D.O. PS: PS Report ID: [id number] Reading Location: [id number] us Beka Cruz MD IMG CT PROCEDURES Final R esult * Hepatitis C antibody Blood (09/14/2024 11:21 AM CDT) Hep C Ab Nonreactive Nonreactive Comment:Antibodies to HCV no t detected. Does NOT exclude the possibility of recent exposure to HCV. Current interpretive data was last revised on 22 Blood 09/14/2024 11:2 1 AM CDT 09/14/2024 12:37 PM CDT us Carlotta Lobato MD LAB MICROBIOLOGY - GENERAL ORDER FLORA Final Result Performing Organization Address City/State/ZIP Co ok Phone Number [facility] Department [place] [address] * COLONOSCOPY (10/25/2022 7:47 AM CDT) Anatomical Region Laterality Modality Other Narrative Procedure Note Flaco Castaneda MD - 10/25/2022 7:47 AM CDT [facility] Patient Name: Devon Kilpatrick Procedure Date: 10/25/2022 7:47 AM Date of : 1960 Admit Type: Outpatient Age: 62 Gender: Male Attending MD: Flaco Castaneda M.D. Room: [facility] ENDOSCOPY ROOM 1 Note Status: Finalized Patient Profile: This is a 62 year old male. Procedure: Colonoscopy Indications: High risk colon cancer surveillance: Personalhistory of colon cancer, Last colonoscopy: August 2019 Referring MD: Giorgio Montoya M.D. Providers: Flaco Castaneda M.D. Impression: - The colonic anastomosis is normal. - The sigmoid colon, descending colon, transverse colon and recto-sigmoid colon are normal. - Granularity in the distal rectum. Biopsied. - Internal hemorrhoids. Recommendation: - Await pathology results. - Repeat colonoscopy in 3 years for screeningpurposes. Medicines: Monitored Anesthesia Care Complications: No immediate complications. Estimated Blood Loss: Estimated blood loss: none. Procedure: Pre-Anesthesia Assessment: - Prior to the procedure, a History and Physicalwas performed, and patient medications and allergieswere reviewed. The patient's tolerance of previous anesthesia was also reviewed. The risks andbenefits of the procedure and the sedation options and risks were discussed with the patient. All questions were answered, and informed consent was obtained. Prior Anticoagulants: The patient has taken noanticoagulant or antiplatelet agents. ASA Grade Assessment: II -A patient with mild systemic disease. After reviewing the risks and benefits, the patient was deemed in satisfactory condition to undergo the procedure. The benefits, risks and alternatives of theprocedure and sedation were discussed and informed consentwas obtained. All questions were answered. Please referto the signed informed consent document in the medical record. The bowel preparation used was Miralax and bisacodyl tablets via split dose instruction. The scope was passed under direct vision. The Pediatric Colonoscope [id number]-[id number] was introducedthrough the anus and advanced to the ileocolonic anastomosis.The quality of the bowel preparationwas good. Bowel prep was administered using a splitdose. Findings: The perianal and digital rectal examinations were normal. The ileocolonic anastomosis appeared normal. The recto-sigmoid colon, sigmoid colon, descending colon andtransverse colon appeared normal. A localized area of granular mucosa was found in the distal rectum at the site of the previous ulceration. Biopsies were taken with a cold forceps for histology. Internal hemorrhoids were found during retroflexion. The hemorrhoids were medium-sized. Electronically signed by Flaco Castaneda M.D. Flaco Castaneda M.D. 10/25/2022 9:42:41 AM Number of Addenda: 0 Note Initiated On: 10/25/2022 7:47 AM Procedure Code(s): --- Professional --- 86962, Colonoscopy, flexible; with biopsy, single or multiple Diagnosis Code(s): --- Professional --- Z85.038, Personal history of other malignant neoplasm of largeintestine K64.8, Other hemorrhoids K62.89, Other specified diseases of anus and rectum CPT copyright 2020 [employer]. All rights reserved. The codes documented in this report are preliminary and upon log check scaler reviewmay be revised to meet current compliance requirements. Recognized by the [employer] for promoting quality in endoscopy Flaco Castaneda MD ENDOSCOPY PROCEDURES Final Result * PSA diagnostic (04/22/2021 8:46 AM CDT) PSA-Total 1.48 <=3.90 ng/mL DANA CALVERT Comment: Interpretive Data AGE SEX REFERENCE INTERVAL 0 minutes-150 years Female None 0 minutes-49 years Male None 50-59 years Male 0-3.90 60-69 years Male 0-5.40 70-79 years Male 0-6.20 80-150 years Male 0-6.20 Current interpretive data last revised 2018. Testing performed by: [facility], [address] [place] [address]., [id number] Blood 04/22/2021 8:46 AM CDT 04/22/2021 9:21 AM CDT us Jerry Vidal MD LAB BLOOD ORDERABLES Final Re sult DANA [address] [facility] Department [place] [address] * DEXA SCAN (07/05/2019) [facility] Signature DEXA Scan Unknown us Historical Provider HEALTH MAINTENANCE Final Result from Last 3 Months or Most Recently Relevant to Health Maintenance Insurance [employer] OPEN ACCESS [employer] Advance Directives For more information, please contact: [phone] * Full Code (Latest Code Status on File) Date Activated Date Inactivated Comments 10/19/2024 9:53 PM 10/23/2024 3:26 PM * Full Code Date Activated Date Inactivated Comments 06/21/2024 3:26 PM 06/25/2024 7:23 PM * Full Code Date Activated Date Inactivated Comments 10/25/2022 7:55 AM 10/25/2022 2:23 PM * Full Code Date Activated Date Inactivated Comments 10/25/2022 7:55 AM 10/25/2022 7:55 AM * Full Code Date Activated Date Inactivated Comments 08/27/2019 8:43 AM 08/27/2019 3:42 PM Care Teams Rnfa Relationship Specialty Start Date End Date Beka Cruz MD [address] [place] [address] PCP - General Internal Medicine 08/06/24
--- OUTSIDE RECORDS SUMMARY | 2025-03-13 03:05 | XMS_ITS | Clinical Summary ---
Author Organization [facility] Address [address] [place] [address] Care Team Providers Care Cloth Shader Name Role Phone None, Provider Primary Care Provider Landen Nance MD Unavailable [phone] Allergies Active Allergy Reactions Criticality Noted Date Comments Benzonatate Hives 06/26/2020 Medications No known medications Family History Medical History Relation Comments No Known Problems Father No Known Problems Mother Relation Status Comments Father Alive Mother Alive Social History Tobacco Use Types Packs/Day Years Used Date Smoking Tobacco: Every Day Cigarettes Smokeless Tobacco: Never Alcohol Use Standard Drinks/Week Comments Yes 0 (1 standard drink = 0.6 oz pur e alcohol) rare Sex and Gender Information Value Date Recorded Sex Assigned at Not on file Legal Sex Male 6:21 PM CDT Gender Identity Not on file Sexual Orientation Not on file Last Filed Vital Signs Vital Sign Reading Time Taken Comments Blood Pressure 126/76 06/26/2020 1:19 PM DIE TROUBLE SHOOTER Pulse 75 06/26/2020 1:19 PM DIE TROUBLE SHOOTER Temperature 37.3 C (99.1 F) 06/26/2020 1:19 PM DIE TROUBLE SHOOTER Respiratory Rate 16 06/26/2020 1:19 PM DIE TROUBLE SHOOTER Oxygen Saturation 96% 06/26/2020 1:19 PM DIE TROUBLE SHOOTER Inhaled Oxygen Concentration - - Weight 79.4 kg (175 lb) 06/26/2020 1:19 PM DIE TROUBLE SHOOTER Height 177.8 cm (5' 10) 06/26/2020 1:19 PM DIE TROUBLE SHOOTER Body Mass Index 25.11 06/26/2020 1:19 PM DIE TROUBLE SHOOTER Plan of Treatment Health Maintenance Due Date Last Done Comments Colorectal Cancer Screening Colonoscopy (10 Years) 1960 Annual Physical 1965 Hepatitis C 1980 Pneumococcal Vaccine: 50+ Ye ars (1 of 2 - PCV) 1981 Zoster Vaccines (1 of 2) 2012 DTaP, Tdap and Td Vaccines ( 2 - Td or Tdap) 12/07/2017 12/08/2007 COVID-19 Vaccine (1 - 2023-2 5 season) 2025 RSV Immunization or 60+ Years (1 - 1-dose 75+ series) 2037 Meningococcal B Vaccine Aged Out No l onger eligible based on patient's age to complete this topic Meningococcal Vaccine Aged Out No zehra sommer eligible based on patient's age to complete this topic RSV Immunizations Under 20 Months Aged Out No longer eligible based on patient's age to complete this topic Insurance [employer] Care Teams Cloth Shader Relationship Specialty Start Date End Date None, Provider, PCP - General 06/26/20 Landen Robbins MD [address] [place] [phone] ORTHOPAEDIC SURGERY 06/26/20
--- OUTSIDE RECORDS SUMMARY | 2025-03-13 03:05 | XMS_ITS | Encounter Summary ---
Author Organization [facility] Address [address] [place] [address] Care Team Providers Care Vice President Regulatory Name Role Phone Giorgio Montoya MD Primary Care Provider Unavail able Encounter Details Date Type Department Care Team (Late st Contact Info) Description 02/15/2018 Lab Requisition [facility] Care DermPath Lab [address] [facility] [facility] [place] [address] Jericho Bhardwaj MD [address] [place] [address] Social History Tobacco Use Types Packs/Day Years Used Date Smoking Tobacco: Never Assessed Sex and Gender Information Value Date Recorded Sex Assigned at Not on file 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 Gender Identity Not on file Sexual Orientation Not on file documented as of this encounter Plan of Treatment Not on file documented as of this encounter Procedures Procedure Name Priority Date/Time Associated Diagnosis Comments DERMATOPATHOLOGY Routine 02/14/2018 12:0 0 AM CDT documented in this encounter Results * DERMATOPATHOLOGY (02/14/2018 12:00 AM CDT) Case Report Dermatopathology Report Case: [id number] Authorizing Provider: Jericho Bhardwaj MD Collected: 02/14/2018 12:00 AM Pathologist: Americo Phipps MD Received: 02/15/2018 11:56 AM Specimen: Skin, right cheek 1:29 PM CDT DERMATOPATHOLOGY LABORATORY Final Diagnosis Specimen A. SKIN, right cheek: SOLAR LENTIGO (L81.4) (see microscopic description) 1:29 PM T DERMATOPATHOLOGY LABORATORY at 1329 CDT Clinical History R/O lentigo. 1:29 PM CDT DERMATOPATHOLOGY LABORATORY Gross Description Specimen A: Received is one formalin filled container labeled with the patient's name and designated right cheek. The specimen consists of a shave biopsy measuring [id number]. Jar 0. 1:29 PM T DERMATOPATHOLOGY LABORATORY Microscopic Description Specimen A. SKIN, right cheek: There is orthokeratosis. There is a slight increase in epidermal thickness with lentiginous buds of hyperpigmented keratinocytes. The number of melanocytes, highlighted by MART-1/Melan-A immunohistochemical staining, is only mildly increased. In the dermis, there is basophilic degeneration of elastic fibers. 1:29 PM T DERMATOPATHOLOGY LABORATORY Disclaimer An external and internal positive and negative controls are appropriate for the histochemical, immunohistochemical and immunofluorescence stain(s) in this case (if any), except where stated explicitly. The performance characteristics of the stain(s) cited in this report were developed and its performance characteristic determined by the Dermatopathology Laboratory at [facility]. These tests need not be, and therefore are not, approved by the [place] Food and Drug Administration. The tests are used for clinical purposes. Billing Codes Specimen Charges Stain Charges 87935 1 84413 1 1:29 PM CDT DERMATOPATHOLOGY LABORATORY Embedded Images 1:29 PM CDT DERMATOPATHOLOGY LABORATORY Pathology/Cytolog y TISSUE SPECIMEN FROM SKIN / Unknown 02/14/2018 02/15/2018 11:56 AM CDT Jericho Bhardwaj MD LAB - PATHOLOGY/CYTOLOGY ORD ERABLES Final Result DERMATOPATHOLOGY LABORATORY [facility] - Department of Dermatology [address] [place] [address], 5th Floor Lab [address] [phone] documented in this encounter Visit Diagnoses Not on filedocumented in this encounter Care Teams Vice President Regulatory Relationship Specialty Start Date End Date Giorgio Montoya MD PCP - General 06/07/12 documented as of this encounter
--- OUTSIDE RECORDS SUMMARY | 2025-03-13 03:07 | XMS_ITS | Patient Health Record ---
Author Organization [facility] Address [address] [address] Care Team Providers Care Human Resources Communications Manager Name Role Phone EDVINSTACIEJavier MARK Unavailable [phone] Iker CARLISLE, Kaylin Unavailable Unavailable Allergies Allergen (clinical drug ingredient) Drug/Non Drug Allergy documented on EMR Reaction Allergy Type Onset Date Status Delmis Shepard Unknown Drug Allergy A ctive Reason For Referral No Information Medications Medication SIG (Take, Route, Frequency, Duration) Notes Start Date End Date Status Testosterone Active Percocet Active Problems Problem Type SNOMED Code ICD Code Onset Dates Problem Status W/U Status Risk Notes Problem Lumbar radiculopathy (968634198) Lumbar radiculopathy (M54.16) Active confirmed Plan Of Treatment No Information Insurance Providers Payer Name Payer Address Payer Phone Subscriber Number Group Number Insured Name Patient Relationship to Insured Coverage Start Date Coverage End Date [facility] [id number] [place] [address] [id number] CRISTIAN MANLEY Self - patient is the insured Medical (General) History Medical History History ICD Code Spinal Stenosis Surgical History Surgery Date(Month/Year) Left Nepherectomy 1979 Colon Resection 2012 Cervical fusion C4 C5 C6 2015 C8 Nerve release 2017 Left wrist tendon transfer 2017
--- OUTSIDE RECORDS SUMMARY | 2025-03-13 03:07 | XMS_ITS | Clinical Summary ---
Author Organization [facility] Address [address] [place] [address] Care Team Providers Care Rehabilitation Services Coordinator Name Role Phone Giorgio Montoya MD Primary Care Provider Unavail able Source Comments [facility],non-owned Affiliates and Associated Physician Practices is amultiple site organization consisting of ambulatory clinics and hospital sitesin [place], [place], [place] and [place]. This disclosure is being madepursuant to the Care Everywhere program and may not contain all information available regarding this patient. 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 Gender Identity Not on file Sexual Orientation Not on file Plan of Treatment Health Maintenance Due Date Last Done Comments COLOGUARD (AGES 45-75) - COL ON CA SCREENING 1960 COLON MONITORING 1960 COLONOSCOPY - COLON CA SCREENING 1962 CT COLONOGRAPHY - COLON CA SCREENING 1960 Colorectal Cancer Screening 1960 FIT - COLON CA SCREENING 1960 FLEX SIG - COLON CA SCREENING 1960 LIPID TESTING 1960 HIV SCREENING 1977 HEPATITIS C SCREENING 08/11/1980 DTAP/TDAP/TD VACCINES (1 - Tdap) 1981 PNEUMOCOCCAL VACCINE 50+ (1 of 1 - PCV) 2012 ZOSTER VACCINE (1 of 2) 2012 DEPRESSION SCREENING 06/27/2024 COVID-19 VACCINE (2023-2 5 season) 2025 INFLUENZA VACCINE (#1) 2025 Respiratory Syncytial Virus (RSV) Vaccine Pt: or over 60 yrs (1 - 1-dose 75+ series) 2037 HEPATITIS B VACCINE Aged Out No longe r eligible based on patient's age to complete this topic HIB VACCINE Aged Out No longer eligi ble based on patient's age to complete this topic HPV VACCINE Aged Out No longer eligi ble based on patient's age to complete this topic MENINGOCOCCAL (Group B) VACC INE SHARED DECISION-MAKING Aged Out No longer eligibl e based on patient's age to complete this topic MENINGOCOCCAL GROUPS A/C/Y/W VACCINE Aged Out No longer eligible b ased on patient's age to complete this topic Insurance Care Teams Rehabilitation Services Coordinator Relationship Specialty Start Date End Date Giorgio Montoya MD PCP - General 06/07/12
--- OUTSIDE RECORDS SUMMARY | 2025-03-13 03:08 | XMS_ITS | Patient Health Record ---
Author Organization [facility] Address [address] [place], [place] [address] Care Team Providers Care Labor Law Professor Name Role Phone ELDA STARKEY Unavailable [phone] Reason For Referral No Information Medications Medication SIG (Take, Route, Frequency, Duration) Notes Start Date End Date Status pantoprazole 40 MG Delayed Release Oral Tablet ORAL pantoprazole 40 MG Delayed Release Oral TabletOriginal Medicationpantoprazole 40 MG Delayed Release Oral Tablet *Reorder from [employer] for eRx and Interaction Alerts* 015 Active alprazolam 0.25 MG Disintegrating Oral Tablet ORAL alprazolam 0.25 MG Disintegrating Oral TabletOriginal Medicationalprazolam 0.25 MG Disintegrating Oral Tablet *Reorder from [employer] for eRx and Interaction Alerts* 015 Active hydrochlorothiazide 25 MG / triamterene 37.5 MG Oral Capsule ORAL hydrochlorothiazide 25 MG / triamterene 37.5 MG Oral CapsuleOriginal Medicationhydrochlorothiazide 25 MG / triamterene 37.5 MG Oral Capsule *Reorder from [employer] for eRx and Interaction Alerts* 015 Active clotrimazole 10 MG/ML Topical Solution clotrimazole 10 MG/ML Topica l SolutionOriginal Medicationclotrimazole 10 MG/ML Topical Solution *Reorder from [employer] for eRx and Interaction Alerts* 015 Active Plan Of Treatment No Information Insurance Providers Payer Name Payer Address Payer Phone Subscriber Number Group Number Insured Name Patient Relationship to Insured Coverage Start Date Coverage End Date [employer] [address] [place] [phone] [id number] CRISTIAN MANLEY Self - patient is the insured
--- NOTE | 2025-03-13 05:49 | ECG_ITS ---
Test Date: 2025-03-13 07:05:22 Measurements Intervals [place] Rate: 66 P: 62 CA: 165 QRS: 68 QRSD: 94 T: 54 QT: 378 QTc: 398 Interpretive Statements SINUS RHYTHM EARLY REPOLARIZATION [ST ELEVATION WITH NORMALLY INFLECTED T-WAVE] ABNORMAL ECG No previous ECG available for comparison Electronically Signed On 03-13-2025 07:43:39 CDT by Eitan Alatorre M.D.
[2025-03-13 06:15] VITALS: BP 118/77; PULSE 83; RESP 18; TEMP 36.6; O2SAT 100
[2025-03-13] MEDS: ACETAMINOPHEN 500 MG TABLET 1000 MG PO (06:24)
[2025-03-13] MEDS: LACTATED RINGERS 1,000 ML 30 ML IV CONT (06:25)
--- NOTE | 2025-03-13 06:46 | WPDANESEPPF ---
Anes - Initial Pre Proc Eval Procedure: Operation Date: 03/13/25 07:30 Proposed Procedures p Penile Exploration and Removal Foreign Body - Johanna Gould MD Date/Time: 03/13/25 06:46 Surgeon: Johanna Gould MD Pre Op Diagnosis: fb in penis Patient Data Age: 64 Gender: M Height: 1.75 m Weight: 73.3 kg Last Vital Signs Temp 36.6 C 03/13/25 06:15 Pulse 83 03/13/25 06:15 Resp 18 03/13/25 06:15 BP 118/77 03/13/25 06:15 Pulse Ox 100 03/13/25 06:15 O2 Del Method Room Air 03/13/25 06:15 Allergies Allergy/AdvReac Type Severity Reaction Status Date / Time benzonatate Allergy Intermediate Rash Verified 03/12/25 09:07 Home Medications ?Medication ?Instructions ?Recorded ?Confirmed ?Type tadalafil 5 mg tablet 5 mg PO DAILY 03/12/25 03/12/25 History Patient hx anesthesia problems: none Family hx anesthesia problems: none Results Review: All pre-operative results and documents have been reviewed as part of the pre-operative evaluation. [facility] Social History Social History (Updated 03/13/25 @ 06:52 by Andrei Mckeon DO) Years smoked: 44 Smoking status: Current every day smoker Tobacco type: cigarettes Additional smoking assessment comments: <1 PPD now, but previously 2 PPD, 47 years Alcohol intake: current Living arrangements: with family Spiritual care concerns: No Anes - Eval Final PreProcedure Day of Procedure 03/13/25 06:46 Patient weight: normal Heart: regular rate and rhythm Lungs: clear to auscultation and normal air movement Airway: Mallampati scale class II Neurological: alert and oriented Last oral intake: >/= 8 hours ASA classification: III Emergent: no Anesthetic plan: proceed Anesthesia type and monitoring: general GIVS and standard monitoring Results Review: All pre-operative results and documents have been reviewed as part of the pre-operative evaluation. Informed Consent: The patient's anesthetic plan and its attendant risks and benefits were discussed with the patient/family/POA. Questions were solicited and answers provided to the satisfaction of the patient/family/POA.
--- NOTE | 2025-03-13 07:27 | WPDHPUPDATE1 ---
History and Physical Update Update Date/Time: 03/13/25 07:27 History and Physical has been reviewed, including an updated exam of the patient. There are NO changes in the patient's condition. Risks, benefits, and alternatives have been discussed and questions answered. Patient agrees to proceed with procedure.
[2025-03-13] MEDS: ceFAZolin 2 GM in SODIUM CHLORIDE 0.9% IV 50 ML 100 ML IVPB (07:36)
[2025-03-13] MEDS: BUPivacaine HCL 0.5% 10 ML AMP INFILTRATE (07:54)
--- NOTE | 2025-03-13 08:05 | W.PM.PROC2 ---
Procedure Note - Detailed Date of Procedure 03/13/25 Pre-op Diagnosis Foreign body in penis Post-op Diagnosis Same Procedure Performed Penile exploration, removal of foreign body (needle) Surgeon Johanna Gould MD Anesthesia MAC and Local Description of Procedure Informed consent was obtained. Patient to the operative. He was given preoperative IV antibiotics. Uses anesthesia. He was prepped draped normal sterile fashion. A penile block was performed with 0.5% Marcaine without epinephrine. We could palpate the foreign body in the right mid shaft. A 2cm incision was made over the area of interest. We then bluntly dissected down to the Savage's fascia where we identified the needle present. It was then carefully removed in 1 piece. We then irrigated copiously. Hemostasis was achieved with electrocautery. We then closed the incision with interrupted 3-0 chromic sutures. A compressive dressing was placed. Patient was taken recovery in stable condition Pathology Yes Complications No immediate complications Condition Stable Disposition PACU
[2025-03-13 08:06] VITALS: BP 99/64; PULSE 62; RESP 14; O2SAT 98
[2025-03-13 08:30] VITALS: BP 117/72; PULSE 70; RESP 20
[2025-03-13 09:00] VITALS: BP 106/71; PULSE 65; RESP 20
== END 2025-03-13 09:04 | disposition home or self-care (01) ==
PROVIDERS: Visit Provider Urology
PROC: (CPT 54700; principal; 2025-03-13 07:30)
DX: T19.4XXA Foreign body in penis, initial encounter (principal); W44.H1XA Needle entering into or through a natural orifice, initial encounter; F17.210 Nicotine dependence, cigarettes, uncomplicated
CPT/HCPCS: 54115; 93005; J0690; A9270; J2003; J2250; J2704; J3010; J7120